=== PATIENT | female | born 1970 ===

== ENCOUNTER 2019-02-14 14:37 | Emergency (ER) | payer MEDICAID ==
[2019-02-14 14:42] VITALS: BMI 33.7
[2019-02-14 14:44] VITALS: RESP 16
--- NOTE | 2019-02-14 15:03 | C.PDOC ---
History Of Present Illness Patient is a 48 year old female, 11 weeks , who presents to the ED c/o vaginal bleeding with associated LLQ that began today. Patient reports that she had a US at 9 weeks, which showed a possible miscarriage. She denies any fever, CP, SOB, or dysuria. Time Seen by Provider: 02/14/19 14:54 Chief Complaint (Nursing): Abdominal Pain History Per: Patient History/Exam Limitations: no limitations Onset/Duration Of Symptoms: Hrs Current Symptoms Are (Timing): Still Present Location Of Pain/Discomfort: LLQ Associated Symptoms: denies: Fever, Chest Pain, Urinary Symptoms Recent travel outside of the [place]: No Additional History Per: Patient Abnormal Vaginal Bleeding: Yes Past Medical History Reviewed: Historical Data, Nursing Documentation, Vital Signs Vital Signs: Last Vital Signs Temp 98.8 F 02/14/19 14:41 Pulse 81 02/14/19 14:41 Resp 16 02/14/19 14:41 BP 145/83 02/14/19 14:41 Pulse Ox 100 02/14/19 14:41 Surgical History: Cholecystectomy Family History: States: No Known Family Hx - Social History Hx Alcohol Use: Yes Hx Substance Use: No - Immunization History Hx Tetanus Toxoid Vaccination: No Hx Influenza Vaccination: No Hx Pneumococcal Vaccination: No Review Of Systems Except As Marked, All Systems Reviewed And Found Negative. Cardiovascular: Negative for: Chest Pain Respiratory: Negative for: Shortness of Breath Physical Exam - Physical Exam Additional Physical Exam Comments: Constitutional: No acute distress. Head: Normocephalic. Atraumatic. Eyes: PERRL. ENT: Moist mucous membranes. Neck: Supple. Cardiovascular: Regular rate. Radial pulse 2+ bilaterally. Chest: No tenderness. Respiratory: Clear to auscultation bilaterally. GI: Soft. Nontender. Nondistended. Back: No CVA tenderness. Musculoskeletal: No tenderness or swelling of extremities. Skin: No rash. Neurologic: Alert, no focal deficit. ED Course And Treatment - Laboratory Results Result Diagrams: 02/14/19 15:26 02/14/19 15:26 O2 Sat by Pulse Oximetry: 100 (on RA) Pulse Ox Interpretation: Normal Medical Decision Making Medical Decision Making: Plan: Labs Urinalysis Urine Culture US Transvaginal Date of service: 02/14/2019 HISTORY: bleeding in , assess cervix LMP 11/21/2018. Beta HCG results: [id number] units. COMPARISON: None available. TECHNIQUE: Transabdominal, transvaginal. Real -time technique with 2D, duplex and color Doppler. FINDINGS: UTERUS: Measures 7.2 x 5.8 x 11.2 cm. Heterogeneous echo characteristics. Solitary submucosal fibroid lower uterine segment 0.8 x 1.2 cm. ENDOMETRIUM: Measures 32.2 mm in diameter. Markedly thickened, irregular heterogeneous echo characteristics of the endometrium. No visible products of conception. CERVIX: Closed cervix measures 3.57 cm. RIGHT OVARY: Measures 2.9 x 4.5 x 4.9 cm. Complex, septated cyst with thick irregular wall. This measures 2.9 x 3.9 x 3.8 cm. Normal flow. LEFT OVARY: Measures 2.6 x 2.1 x 2.6 cm. No solid mass. Normal flow. FREE FLUID: No significant free fluid noted. OTHER FINDINGS: None. IMPRESSION: 1. Markedly thickened heterogeneous endometrium. The findings in conjunction with the markedly elevated beta HCG suggests molar /gestational trophoblastic disease. 2. Septated right adnexal cyst. Dr. Richelle BONILLA purification director consulted, came to see and evaluate patient at bedside in ED. She recommends discharge at this time as patient is stable without active bleeding and unremarkable Hb. She is instructing patient to follow up with [facility] in [place] to have D&C scheduled. She states she will have patient's contact information collected so they can check on patient and ensure she followed up expeditiously. Disposition - Disposition Referrals: [facility] [Outside] Disposition: HOME/ ROUTINE Disposition Time: 17:55 Condition: STABLE Instructions: Gestational Trophoblastic Disease Forms: [facility] (Thai) Print Language: UKRAINIAN - Clinical Impression Clinical Impression: Molar - Scribe Statement The provider has reviewed the documentation as recorded by the Lora Jolley All medical record entries made by the Lanceibflower were at my direction and personally dictated by me. I have reviewed the chart and agree that the record accurately reflects my personal performance of the history, physical exam, medical decision making, and the department course for this patient. I have also personally directed, reviewed, and agree with the discharge instructions and disposition.
[2019-02-14 15:34] LABS: BASO % 0.4 % (0.0-2.0); EOS # 0.1 K/uL (0.0-0.7); EOS % 0.8 % (0.0-4.0); HEMOGLOBIN 13.9 g/dL (11.0-16.0); LYMPH # 2.2 K/uL (1.0-4.3); MEAN CORPUSCULAR HEMOGLOBIN 32.6 pg (27.0-31.0); MEAN CORPUSCULAR HGB CONC 34.3 g/dL (33.0-37.0); MEAN PLATELET VOLUME 9.1 fL (7.2-11.7); MONO # 0.5 K/uL (0.0-0.8); MONO % 6.6 % (0.0-10.0); NEUT # 4.7 K/uL (1.8-7.0); NEUT % 63.2 % (50.0-75.0); RBC 4.26 Mil/uL (3.80-5.20); RED CELL DISTRIBUTION WIDTH 13.9 % (11.5-14.5); WHITE BLOOD COUNT 7.4 K/uL (4.8-10.8)
[2019-02-14 15:37] LABS: SQUAMOUS EPITHIAL 5 /hpf (0-5); URINE BILIRUBIN NEGATIVE (NEGATIVE); URINE BLOOD NEGATIVE (NEGATIVE); URINE CLARITY Hazy (Clear); URINE COLOR Yellow (YELLOW); URINE GLUCOSE (UA) NORMAL (Normal); URINE LEUKOCYTE ESTERASE NEG Leu/uL (Negative); URINE PROTEIN NEGATIVE (NEGATIVE); URINE UROBILINOGEN NORMAL mg/dL (0.2-1.0)
[2019-02-14 15:46] LABS: ALB/GLOB RATIO 1.6 (1.0-2.1); ALBUMIN 4.4 g/dL (3.5-5.0); AST/SGOT 27 U/L (14-36); BLOOD UREA NITROGEN 8 mg/dL (7-17); CALCIUM 9.3 mg/dl (8.6-10.4); GFR NON-AFRICAN AMERICAN > 60; LIPASE 123 U/L (23-300)
[2019-02-14 16:18] LABS: ALT/SGPT < 6 U/L (9-52)
[2019-02-14 17:16] VITALS: BP 136/39; PULSE 71; TEMP 99
--- NOTE | 2019-02-14 17:23 | US ---
Date of service: 02/14/2019 HISTORY: bleeding in , assess cervix LMP 11/21/2018. Beta HCG results: [id number] units. COMPARISON: None available. TECHNIQUE: Transabdominal, transvaginal. Real -time technique with 2D, duplex and color Doppler. FINDINGS: UTERUS: Measures 7.2 x 5.8 x 11.2 cm. Heterogeneous echo characteristics. Solitary submucosal fibroid lower uterine segment 0.8 x 1.2 cm. ENDOMETRIUM: Measures 32.2 mm in diameter. Markedly thickened, irregular heterogeneous echo characteristics of the endometrium. No visible products of conception. CERVIX: Closed cervix measures 3.57 cm. RIGHT OVARY: Measures 2.9 x 4.5 x 4.9 cm. Complex, septated cyst with thick irregular wall. This measures 2.9 x 3.9 x 3.8 cm. Normal flow. LEFT OVARY: Measures 2.6 x 2.1 x 2.6 cm. No solid mass. Normal flow. FREE FLUID: No significant free fluid noted. OTHER FINDINGS: None. IMPRESSION: 1. Markedly thickened heterogeneous endometrium. The findings in conjunction with the markedly elevated beta HCG suggests molar /gestational trophoblastic disease. 2. Septated right adnexal cyst.
[2019-02-14 17:44] VITALS: O2SAT 100
--- NOTE | 2019-02-14 18:52 | CP.PCM.CON ---
<Esther Mora - Last Filed: 02/14/19 19:21> History of Present Illness - History of Present Illness History of Present Illness: OBGYN Consult Note for Dr. Peoples 48 year old at 12.1 weeks gestational age by LMP Nov 21, 2018 presents to the ER with abdominal pain and bleeding. During her visit to the ER, patient states that her lower abdominal pain was just this morning and it has resolved. She also noted some bleeding for two days that was not much but has diminished. She is a patient of [facility]. Patient feels fine now. Of note, no more than a month ago, she was told that her fetus is not living. But she did not follow up with a doctor for care at a later time. Last time she ate was very little with coffee at 7am this morning. She last drank water provided by the ER to increase her bladder volume for her transvaginal ultrasound. Patient is not in any type of pain now. PMHx: denies PSHx: lap cholecystectomy due to gallbladder cysts about 10 years ago SocHx: Denies tobacco, EtOH rarely (few times a year during holidays), and denies illicit drugs. Meds: denies taking medications now Allergies: NKDA Past Patient History - Past Social History Smoking Status: Never Smoked - PSYCHIATRIC Hx Substance Use: No - SURGICAL HISTORY Hx Cholecystectomy: Yes - ANESTHESIA Hx Anesthesia: Yes Meds Allergies/Adverse Reactions: Allergies Allergy/AdvReac Type Severity Reaction Status Date / Time No Known Allergies Allergy Verified 02/14/19 14:41 Physical Exam - Constitutional Appears: Well, Non-toxic - Head Exam Head Exam: ATRAUMATIC, NORMAL INSPECTION - Eye Exam Eye Exam: Normal appearance - Neck Exam Neck exam: Positive for: Normal Inspection - Respiratory Exam Respiratory Exam: Clear to Auscultation Bilateral, NORMAL BREATHING PATTERN - Cardiovascular Exam Cardiovascular Exam: REGULAR RHYTHM, RRR - Exam Speculum exam: NORMAL SPECULUM EXAM. absent: Erythema, Foreign Body, Laceration, Tissue, Vaginal Bleeding, Vaginal Discharge Bimanual exam: NORMAL BIMANUAL EXAM (Mild tenderness to palpation of the suprapubic area during bimanual exam). absent: Adenexal Mass - Back Exam Back exam: NORMAL INSPECTION - Neurological Exam Neurological exam: Alert, Oriented x3 - Psychiatric Exam Psychiatric exam: Normal Affect, Normal Mood - Skin Skin Exam: Normal Color, Warm Results - Vital Signs Recent Vital Signs: Last Vital Signs Temp 99.0 F 02/14/19 17:11 Pulse 71 02/14/19 17:11 Resp 16 02/14/19 17:11 BP 136/39 L 02/14/19 17:11 Pulse Ox 100 02/14/19 18:39 - Labs Result Diagrams: 02/14/19 15:26 02/14/19 15:26 Labs: Laboratory Results - last 24 hr 02/14/19 02/14/19 02/14/19 15:26 15:26 15:26 WBC 7.4 RBC 4.26 Hgb 13.9 Hct 40.4 MCV 95.0 MCH 32.6 H MCHC 34.3 RDW 13.9 Plt Count 196 MPV 9.1 Neut % (Auto) 63.2 Lymph % (Auto) 29.0 [place] % (Auto) 6.6 Eos % (Auto) 0.8 Baso % (Auto) 0.4 Neut # (Auto) 4.7 Lymph # (Auto) 2.2 [place] # (Auto) 0.5 Eos # (Auto) 0.1 Baso # (Auto) 0.0 Sodium 134 Potassium 4.0 Chloride 102 Carbon Dioxide 27 Anion Gap 9 L BUN 8 Creatinine 0.5 L Est GFR ( Amer) > 60 Est GFR (Non-Af Amer) > 60 Random Glucose 83 Calcium 9.3 Total Bilirubin 0.5 AST 27 ALT < 6 L Alkaline Phosphatase 56 Total Protein 7.1 Albumin 4.4 Globulin 2.7 Albumin/Globulin Ratio 1.6 Lipase 123 Beta HCG, Quant 549901.00 Urine Color Yellow Urine Clarity Hazy Urine pH 6.0 Ur Specific [place] 1.016 Urine Protein Negative Urine Glucose (UA) Normal Urine Ketones Trace Urine Blood Negative Urine Nitrate Negative Urine Bilirubin Negative Urine Urobilinogen Normal Ur Leukocyte Esterase Neg Urine WBC (Auto) 2 Urine RBC (Auto) 3 Ur Squamous Epith Cells 5 Blood Type Antibody Screen 02/14/19 15:26 WBC RBC Hgb Hct MCV MCH MCHC RDW Plt Count MPV Neut % (Auto) Lymph % (Auto) [place] % (Auto) Eos % (Auto) Baso % (Auto) Neut # (Auto) Lymph # (Auto) [place] # (Auto) Eos # (Auto) Baso # (Auto) Sodium Potassium Chloride Carbon Dioxide Anion Gap BUN Creatinine Est GFR ( Amer) Est GFR (Non-Af Amer) Random Glucose Calcium Total Bilirubin AST ALT Alkaline Phosphatase Total Protein Albumin Globulin Albumin/Globulin Ratio Lipase Beta HCG, Quant Urine Color Urine Clarity Urine pH Ur Specific [place] Urine Protein Urine Glucose (UA) Urine Ketones Urine Blood Urine Nitrate Urine Bilirubin Urine Urobilinogen Ur Leukocyte Esterase Urine WBC (Auto) Urine RBC (Auto) Ur Squamous Epith Cells Blood Type O POSITIVE Antibody Screen Negative Assessment & Plan - Assessment and Plan (Free Text) Assessment: 48 year old at 12.1 weeks gestational age by LMP Nov 21, 2018 presents to the ER with lower abdominal pain and bleeding. Hemodynamically stable, CBC wnl, and FAUCET POLISHER exam unremarkable. -TVUS suggests molar /gestational trophoblastic disease. -Due to patient's recent consumption of water in the ER and increased risk of aspiration if she is to go to the OR today, she will need to have D&C scheduled another time. Patient is stable so elective surgery is to be done 1-2 weeks. After D&C to remove products of conception, will need to follow up with weekly HCG until no more HCG. -patient will be contacted next week after we speak to clinic to inquire about her following up. Patient can be reached at [phone]. She agrees to the above plan. case discussed with Dr. Richelle Mora PGY1 <Rudy Peoples S - Last Filed: 02/17/19 10:15> Physical Exam - GI/Abdominal Exam GI & Abdominal Exam: Soft. 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 Pt denied heavy bleeding/pelvic pain and states she goes to [facility] for her care. I: Hydatidiform mole AMA P: Pt advised that this nonviable preg appears to be a molar preg. Risk of subsequent ca d/w pt and importance of f/u emphasized. She was told she needs to have this procedure scheduled in a medical center where she can have follow serial HCGS and be referred to oncologist if needed. She understands and states she will dos this. Pt called this morning she stated she was at this very moment in [place] for follow up and referral for further management.
== END 2019-02-14 18:55 | disposition home or self-care (01) ==
LOC: C.ER 14:37
DX: O01.9 Hydatidiform mole, unspecified (principal)